=== PATIENT | male | born 1995 | race African-American/Black ===

== ENCOUNTER 2020-11-09 06:57 | Emergency (ER) | payer SELFPAY | END 2020-11-09 08:25 | disposition home or self-care (01) | LOC: ERS 06:57 | DX: J02.9 Acute pharyngitis, unspecified (principal); K08.89 Other specified disorders of teeth and supporting structures; M26.622 Arthralgia of left temporomandibular joint | CPT/HCPCS: 87081; 87430; 99283 ==